=== PATIENT | male | born 1975 | race Hispanic/Latino ===

== ENCOUNTER 2016-07-05 10:29 | Emergency (ER) | payer OTHER ==
[2016-07-05 10:33] VITALS: BP 124/79; PULSE 77; TEMP 98.3; O2SAT 100
[2016-07-05 10:47] VITALS: RESP 21
--- NOTE | 2016-07-05 11:45 | ED PDOC ---
HPI: Psych/Substance Abuse Time Seen by Provider: 07/05/16 10:40 Chief Complaint (Nursing): Psychiatric Evaluation Chief Complaint (Provider): Psychiatric Evaluation History Per: Patient, Family () History/Exam Limitations: no limitations Onset/Duration Of Symptoms: Hrs Current Symptoms Are (Timing): Still Present Additional Complaint(s): 41 y/o male with a past medical history of mild psychosis presents to the emergency department via EMS when called police after argument prior to arrival. Patient is compliant with medication and therapy. Denies suicidal or homicidal ideation. Past Medical History Reviewed: Historical Data, Nursing Documentation, Vital Signs Vital Signs: Last Vital Signs Temp 98.3 F 07/05/16 10:42 Pulse 77 07/05/16 10:42 Resp 21 07/05/16 10:42 BP 124/79 07/05/16 10:42 Pulse Ox 100 07/05/16 10:42 - Medical History PMH: No Chronic Diseases - Surgical History Surgical History: No Surg Hx - Family History Family History: States: Unknown Family Hx - Social History Current smoker - smoking cessation education provided: No Alcohol: None Drugs: Denies - Allergies Allergies/Adverse Reactions: Allergies Allergy/AdvReac Type Severity Reaction Status Date / Time No Known Allergies Allergy Verified 07/05/16 10:42 Review of Systems ROS Statement: Except As Marked, All Systems Reviewed And Found Negative Psych: Negative for: Suicidal ideation (or homicidal ideation) Physical Exam - Reviewed Nursing Documentation Reviewed: Yes Vital Signs Reviewed: Yes - Physical Exam Appears: Positive for: Non-toxic, No Acute Distress Head Exam: Positive for: ATRAUMATIC, NORMOCEPHALIC Skin: Positive for: Normal Color (Superficial abrasions RUE), Warm, Dry Neck: Positive for: Normal, Supple Cardiovascular/Chest: Positive for: Regular Rate, Rhythm. Negative for: Murmur Respiratory: Positive for: Normal Breath Sounds. Negative for: Accessory Muscle Use, Respiratory Distress Gastrointestinal/Abdominal: Positive for: Normal Exam, Soft. Negative for: Tenderness Extremity: Positive for: Normal ROM. Negative for: Pedal Edema Neurologic/Psych: Positive for: Alert, Oriented - ECG O2 Sat by Pulse Oximetry: 100 (RA) Pulse Ox Interpretation: Normal Medical Decision Making Medical Decision Making: Time: 10:40 Initial impression: Crisis evaluation Initial plan: --Crisis Evaluation Scribe Attestation: Documented by Luz Elena Qureshi, acting as a scribe for Preethi Pollack MD. Provider Scribe Attestation: All medical record entries made by the Scribe were at my direction and personally dictated by me. I have reviewed the chart and agree that the record accurately reflects my personal performance of the history, physical exam, medical decision making, and the department course for this patient. I have also personally directed, reviewed, and agree with the discharge instructions and disposition. Disposition - Clinical Impression Clinical Impression: Adjustment disorder - Disposition Disposition: Routine/Home Disposition Time: 11:44 Condition: STABLE Instructions: Mood Disorders (ED)
== END 2016-07-05 11:58 | disposition home or self-care (01) ==
LOC: H.ER 10:29
DX: F43.20 Adjustment disorder, unspecified (principal)

== ENCOUNTER 2016-10-17 02:38 | Emergency (ER) | payer OTHER ==
--- NOTE | 2016-10-17 04:04 | ED PDOC ---
HPI: Psych/Substance Abuse Time Seen by Provider: 10/17/16 02:57 Chief Complaint (Nursing): Psychiatric Evaluation Chief Complaint (Provider): crisis eval History Per: Patient, EMS History/Exam Limitations: no limitations Additional History Per: Patient, EMS Additional Complaint(s): 41 y/o male brought in by EMS for crisis eval. Patient states his called the police on him because he told her that cars are following him and that he thinks she is connected to his ex girlfriend and the cartel that have been following him when he lived in [place]. Patient denies suicidal/homicidal ideations, drug/alcohol use, acute medical complaints. Patient notes psych admissions in the past for mild psychosis. Past Medical History Reviewed: Historical Data, Nursing Documentation, Vital Signs Vital Signs: Last Vital Signs Temp 98.0 F 10/17/16 02:49 Pulse 88 10/17/16 02:49 Resp 16 10/17/16 02:49 BP 107/78 10/17/16 02:49 Pulse Ox 100 10/17/16 02:49 - Medical History PMH: Denies: Diabetes, Hepatitis, HIV, HTN, Seizures, Sexually Transmitted Disease - Family History Family History: States: Unknown Family Hx - Home Medications Home Medications: Ambulatory Orders Medication Instructions Recorded No Known Home Med 10/17/16 - Allergies Allergies/Adverse Reactions: Allergies Allergy/AdvReac Type Severity Reaction Status Date / Time No Known Allergies Allergy Verified 07/05/16 10:42 Review of Systems ROS Statement: Except As Marked, All Systems Reviewed And Found Negative Psych: Positive for: Psychosis Physical Exam - Reviewed Nursing Documentation Reviewed: Yes Vital Signs Reviewed: Yes - Physical Exam Appears: Positive for: Well, Non-toxic, No Acute Distress Head Exam: Positive for: ATRAUMATIC, NORMAL INSPECTION, NORMOCEPHALIC Skin: Positive for: Normal Color Eye Exam: Positive for: Normal appearance ENT: Positive for: Normal ENT Inspection Cardiovascular/Chest: Positive for: Regular Rate, Rhythm Respiratory: Positive for: Normal Breath Sounds Gastrointestinal/Abdominal: Positive for: Normal Exam Extremity: Positive for: Normal ROM Neurologic/Psych: Positive for: Alert, Oriented - ECG O2 Sat by Pulse Oximetry: 100 ED OBSERVATION Date of observation admission: 10/17/16 Time of observation admission: 05:19 - Observation admission statement Patient is being placed in observation because:: psychosis - Goals of Observation Goals of observation are:: [facility] psychiatric screening - Progress Note Progress Note: 10/17/16 05:20 Patient resting comfortably; will order labs, urine, cxr, ekg Disposition - Clinical Impression Clinical Impression: Delusional disorder - Patient ED Disposition Is Patient to be Admitted: No - Disposition Disposition: Transfer of Care Disposition Time: 06:00 Condition: STABLE Patient Signed Over To: Alfredo Olivas Handoff Comments: pending labs, ekg, chest xray, [facility] screening
--- NOTE | 2016-10-17 05:36 | ED PDOC ---
- Laboratory Results Result Diagrams: 10/17/16 05:41 10/17/16 05:41 - ECG O2 Sat by Pulse Oximetry: 100 Medical Decision Making Medical Decision Makin Patient signed out to me from EDWIN Bell pending [facility] evaluation. [address] Patient signed out to Dr. Nielsen pending [facility] evaluation. Scribe Attestation: Documented by Sandra Berger acting as a scribe for Alfredo Olivas MD. Scribe Attestation: All medical record entries made by the Scribe were at my direction and personally dictated by me. I have reviewed the chart and agree that the record accurately reflects my personal performance of the history, physical exam, medical decision making, and the department course for this patient. I have also personally directed, reviewed, and agree with the discharge instructions and disposition. Disposition - Clinical Impression Clinical Impression: Delusional disorder - POA Present On Arrival: None - Disposition Disposition: Transfer of Care Disposition Time: 07:00 Condition: STABLE Patient Signed Over To: Shantanu Nielsen Handoff Comments: Pending [facility] evaluation
[2016-10-17 05:44] LABS: BASO # 0.1 K/uL (0.0-0.2); BASO % 0.9 % (0.0-2.0); EOS # 0.1 K/uL (0.0-0.7); EOS % 1.7 % (0.0-4.0); HEMOGLOBIN 16.4 g/dL (12.0-18.0); LYMPH # 2.8 K/uL (1.0-4.3); LYMPH % 41.3 % (20.0-40.0); MEAN CELL VOLUME 93.9 fl (80.0-94.0); MEAN CORPUSCULAR HEMOGLOBIN 32.4 pg (27.0-31.0); MEAN CORPUSCULAR HGB CONC 34.5 g/dL (33.0-37.0); MEAN PLATELET VOLUME 6.8 fl (7.2-11.7); MONO # 0.9 K/uL (0.0-0.8); MONO % 13.5 % (0.0-10.0); NEUT # 2.9 K/uL (1.8-7.0); NEUT % 42.6 % (50.0-75.0); NRBC % 0.1 % (0.0-0.0); RBC 5.05 Mil/uL (4.40-5.90); WHITE BLOOD COUNT 6.8 K/uL (4.8-10.8)
[2016-10-17 05:54] LABS: ALB/GLOB RATIO 1.3 (1.0-2.1); ALBUMIN 4.7 g/dL (3.5-5.0); ALT/SGPT 93 U/L (21-72); AST/SGOT 43 U/L (17-59); BLOOD UREA NITROGEN 16 mg/dl (9-20); CALCIUM 9.7 mg/dL (8.4-10.2); GFR AFRICAN-AMERICAN > 60; GFR NON-AFRICAN AMERICAN > 60; URINE BACTERIA RARE (<OCC); URINE BILIRUBIN NEGATIVE (NEGATIVE); URINE BLOOD SMALL (NEGATIVE); URINE CLARITY SLIGHTY-CLOUDY (Clear); URINE COLOR STRAW (YELLOW); URINE GLUCOSE (UA) NEG (Normal); URINE LEUKOCYTE ESTERASE NEG Leu/uL (Negative); URINE NITRATE NEGATIVE (NEGATIVE); URINE PROTEIN NEGATIVE (NEGATIVE); URINE UROBILINOGEN 0.2-1.0 mg/dL (0.2-1.0)
[2016-10-17 06:27] LABS: BARBITURATES, UR NEGATIVE (NEGATIVE); BENZODIAZEPINES, UR NEGATIVE (NEGATIVE); OPIATES, UR NEGATIVE (NEGATIVE); PHENCYCLIDINE, UR NEGATIVE (NEGATIVE)
--- NOTE | 2016-10-17 11:22 | RAD ---
HISTORY: clearance COMPARISON: No prior. TECHNIQUE: Chest PA and lateral FINDINGS: LUNGS: Questionable nodule 16 mm right lower lobe. The finding is marked on the study for review. PLEURA: No significant pleural effusion identified. No pneumothorax apparent. CARDIOVASCULAR: No radiographic findings to suggest acute or significant cardiovascular disease. OSSEOUS STRUCTURES: No significant abnormalities. VISUALIZED UPPER ABDOMEN: Normal. OTHER FINDINGS: None. IMPRESSION: Probable pulmonary nodule right lower lobe. Follow-up recommended. Per institutional protocol results provided verbally with physician blacksmith assistant at the time of this interpretation. This study was also marked critical results yellow and placed in the physician blacksmith assistant review folder.
--- NOTE | 2016-10-17 13:22 | CARD ---
APPROVED REPORT EKG Measurement Heart [id number] MD [id number] <Conclusion> Normal sinus rhythm Rightward axis Borderline ECG
--- NOTE | 2016-10-17 16:37 | ED PDOC ---
- Laboratory Results Result Diagrams: 10/17/16 05:41 10/17/16 05:41 - ECG O2 Sat by Pulse Oximetry: 98 Disposition - Clinical Impression Clinical Impression: Delusional disorder - POA Present On Arrival: None - Disposition Disposition: Transfer of Care Disposition Time: 19:00 Condition: STABLE Forms: [employer] (Malay) Patient Signed Over To: Damian Durham
--- NOTE | 2016-10-17 20:24 | ED PDOC ---
- Laboratory Results Result Diagrams: 10/17/16 05:41 10/17/16 05:41 - ECG O2 Sat by Pulse Oximetry: 98 Medical Decision Making Medical Decision Makin: Patient signed over to me from Dr. Luong awaiting a bed at [facility] Involuntary Psychiatric Unit. Time: 2029 --Patient is resting comfortably with stable vital signs. Time: 2199 --Patient continues to rest comfortably. Time: 2329 --Patient continues to rest comfortably. Time: 99 --Patient continues to rest comfortably. Time: 0 --Patient continues to rest comfortably. Time: 399 --Patient continues to rest comfortably. Time: 0530 --Patient continues to rest comfortably. Time: 699 --Patient signed out to Dr. Hollie Nolasco. Pending bed at [facility]. Scribe Attestation: Documented by Meera Adams acting as a scribe for Damian Durham MD. Provider Scribe Attestation: All medical record entries made by the Scribe were at my direction and personally dictated by me. I have reviewed the chart and agree that the record accurately reflects my personal performance of the history, physical exam, medical decision making, and the department course for this patient. I have also personally directed, reviewed, and agree with the discharge instructions and disposition. Disposition - Clinical Impression Clinical Impression: Delusional disorder - POA Present On Arrival: None - Disposition Disposition: Transfer of Care Disposition Time: 19:00 Condition: STABLE Forms: [facility] (Hebrew) Patient Signed Over To: Hollie Nolasco
--- NOTE | 2016-10-18 07:46 | ED PDOC ---
- Laboratory Results Result Diagrams: 10/17/16 05:41 10/17/16 05:41 - ECG O2 Sat by Pulse Oximetry: 98 Medical Decision Making Medical Decision Making: received patient from Dr. Durham. Patient pending bed availability at [facility]. VSS stable. Patient remain comfortable with 1:1 observation in progress. Disposition - Clinical Impression Clinical Impression: Delusional disorder - Disposition Condition: STABLE Forms: [employer] (Mongolian)
[2016-10-18 14:13] VITALS: O2SAT 98
--- NOTE | 2016-10-18 16:21 | ED PDOC ---
- Laboratory Results Result Diagrams: 10/17/16 05:41 10/17/16 05:41 - ECG O2 Sat by Pulse Oximetry: 98 - Progress ED Course And Treament: 1620: Stable. Took over care from Dr. Yee. [facility] on [facility] bed. Accepted. Is already medically cleared. Disposition - Clinical Impression Clinical Impression: Delusional disorder - POA Present On Arrival: None - Disposition Disposition: Other Institution Disposition Time: 16:12 Condition: STABLE Forms: [employer] (Bulgarian)
[2016-10-18 19:43] VITALS: BP 131/77; PULSE 82; RESP 18; TEMP 98.2
== END 2016-10-18 19:44 | disposition short-term general hospital (02) ==
LOC: H.ER 02:38
DX: F22 Delusional disorders (principal)